=== PATIENT | female | born 1995 | race African-American/Black ===

== ENCOUNTER 2017-08-05 19:01 | Emergency (ER) | payer OTHER ==
[~2017-08-05] VITALS: Ht 157.5 cm; Wt 67.1 kg
[2017-08-05 19:13] VITALS: BP 122/79; PULSE 76; TEMP 36.8; O2SAT 100; Ht 157.5 cm; Wt 67.1 kg
--- NOTE | 2017-08-05 20:27 | DIAGNOSTIC IMAGING REPORT ---
R KNEE 3 VIEWS CLINICAL HISTORY: 21 years-old Female presenting with R knee pain for one year. TECHNIQUE: Frontal, lateral, and sunrise views of the right knee were obtained. COMPARISON: None. FINDINGS: No acute fracture or malalignment. No significant degenerative change. No large knee joint effusion. Mild lateral subluxation of the patella. IMPRESSION: 1. No acute osseous injury or significant degenerative change. 2. Mild lateral patellar subluxation. Electronically signed by: Montana Ybarra M.D. 08/05/2017 8:26 PM Dictated Date/Time: 08/05/2017 8:25 PM
[2017-08-05] MEDS ORDERED: NAPR1TAB9 PO (20:50)
[2017-08-05] MEDS ORDERED: MULT-240 PO (20:50)
--- NOTE | 2017-08-06 00:13 | EMERGENCY ROOM VISIT NOTE ---
History First contact with patient: 19:59 Chief Complaint: KNEEPAIN Stated Complaint: LIMP, WHEN PUTTING WEIGHT ON , PAIN R KNEE History of Present Illness The patient is a 21 year old female who presents to the Emergency Room with complaints of right knee pain yesterday after standing up while sitting for a while crossed legged. The patient denied any paresthesias or numbness of the right lower extremity. She reports that the pain feels like it's mostly in the back of the knee. She has had a history of right knee problems in the past, but has not had any prior orthopedic follow-up. She has not noticed any swelling of the knee, and denies any pain extending into the leg or thigh. She denies paresthesias or numbness of the right lower extremity, and rates her discomfort a 3 out of 10 with ambulation. She denies any pain on my exam. Review of Systems 10 system review was performed and was negative except for pertinent positives and negatives as indicated in history of present illness Past Medical/Surgical History Medical Problems: (1) No significant past medical history Surgical Problems: (1) No history of previous surgery Family History Unremarkable Social History Smoking Status: Never Smoker Alcohol Use: occasionally Marital Status: single Occupation Status: [employer] Current/Historical Medications Scheduled Multiple Vitamins W/ Minerals (Womens One Daily), 1 TAB PO DAILY Scheduled PRN Naproxen (Aleve), 220 MG PO UD PRN for Pain/Cramping Physical Exam Vital Signs Date Time Temp Pulse Resp B/P (MAP) Pulse Ox O2 Delivery O2 Flow Rate FiO2 08/05/17 19:13 36.8 76 16 122/79 100 Room Air Physical Exam CONSTITUTIONAL: Healthy and well nourished. Alert and oriented X 3 with positive affect. Patient does not appear in any acute distress. HEENT: Normocephalic, atraumatic. Pupils equal, round and reactive. NECK: Full active range of motion without discomfort. MUSCULOSKELETAL: Examination of the right knee does not show any obvious soft tissue edema, ecchymosis, abrasions, erythema or skin wounds. The patient has no peripatellar tenderness to palpation, or tenderness to palpation through the quadriceps or patellar tendons. She is able straight leg raise. The patient has no focal tenderness to palpation through the hamstrings. Ligamentous exam is normal. Distal pulses are intact. INTEGUMENTARY: No rash or other significant dermatologic conditions noted. NEUROLOGIC: No focal neurologic deficits noted. Medical Decision & Procedures ER Provider Diagnostic Interpretation: My interpretation of right knee x-rays does not show any obvious fractures, dislocation, prior injuries or joint effusion. A mildly subluxed patellar is noted by the radiologist. Radiologist report is as follows: R KNEE 3 VIEWS CLINICAL HISTORY: 21 years-old Female presenting with R knee pain for one year. TECHNIQUE: Frontal, lateral, and sunrise views of the right knee were obtained. COMPARISON: None. FINDINGS: No acute fracture or malalignment. No significant degenerative change. No large knee joint effusion. Mild lateral subluxation of the patella. IMPRESSION: 1. No acute osseous injury or significant degenerative change. 2. Mild lateral patellar subluxation. ED Course Patient history and physical exam were performed. Nurse's notes were reviewed. Vital signs were reviewed and were normal. X-rays of the right knee were normal, although the radiologist does make mention of a partial sublux patella. It is noted that the patient has no peripatellar tenderness to palpation or anterior knee pain. Because the patient has had problems with hernia in the past, I did suggest that she follow-up with orthopedics for further reevaluation. She was encouraged to intermittently apply ice to the knee. Ibuprofen and Tylenol as needed for pain. A knee immobilizer was applied. The patient was happy with plan of care, and voiced understanding of all discharge instructions, denying any pain at the conclusion of my exam. Medical Decision Medication Reconcilliation Current Medication List: was personally reviewed by me Blood Pressure Screening Patient's blood pressure: Normal blood pressure Impression Primary Impression: Right knee pain Departure Information Referrals No Doctor, Assigned (PCP) Patient Instructions My [facility]
== END 2017-08-05 21:15 | disposition home or self-care (01) ==
LOC: C.EDB 19:03 → C.EDD 21:15
DX: M25.561 Pain in right knee (principal)